=== PATIENT | male | born 1995 | race Caucasian/White ===

== ENCOUNTER 2017-07-16 07:11 | Inpatient (IN) | payer OTHER ==
[~2017-07-16] VITALS: Ht 167.6 cm; Wt 86.8 kg
--- NOTE | 2017-07-16 07:20 | NUR ---
BB MOTHER; ALOC. PER MOTHER PATIENT HAS HAD FLU LIKE SYMPTOMS X 3 DAYS AND BECAME DELIRIOUS LAST NIGHT. PATIENT CURRENTLY A/OX 2. BREATHING EVEN AND UNLABORED. PATIENT IS COOL TO TOUCH, DIAPHORETIC. VITALS REMAIN STABLE. NAD NOTED. SAFETY AND COMFORT MEASURES IN PLACE. MD AT BEDSIDE FOR EVAL.
[2017-07-16] MEDS ORDERED: IV NS 0.9% 1,000 ML BAG IV ONE ×2 (07:30→09:30)
--- NOTE | 2017-07-16 07:38 | NUR ---
PATIENT RETURNED FROM CT IN STABLE CONDITION.
--- NOTE | 2017-07-16 07:40 | NUR ---
NEW IV STARTED ON LFA, 20 G. BLOOD DRAWN AND SENT TO LAB.
[2017-07-16 07:50] LABS: BASOPHILS % (AUTO) 0.1 % (0.0-2.0); EOSINOPHILS # (AUTO) 0.2 /CMM (0.0-0.7); HEMATOCRIT 48 % (39-51); HEMOGLOBIN 16.6 g/dL (13.5-17.5); LYMPHOCYTES # (AUTO) 1.7 /CMM (0.8-4.8); LYMPHOCYTES % (AUTO) 10.1 % (20.0-44.0); MEAN CORPUSCULAR HEMOGLOBIN 30 PG (26.0-33.0); MEAN CORPUSCULAR HGB CONC 34 g/dl (31.0-36.0); MEAN CORPUSCULAR VOLUME 88 fL (80-96); MONOCYTES # (AUTO) 0.7 /CMM (0.1-1.30); MONOCYTES % (AUTO) 4.4 % (2.0-12.0); NEUTROPHILS # (AUTO) 14.2 /CMM (1.8-8.9); NEUTROPHILS % (AUTO) 84.4 % (43.0-81.0); PLATELET COUNT (AUTO) 359 /CMM (150-450); RDW COEFFICIENT OF VARIATION 12.9 (11.5-15.0); RED BLOOD CELL COUNT(AUTO) 5.51 MIL/uL (4.5-6.0); WHITE BLOOD COUNT (AUTO) 16.8 K/uL (4.3-11.0)
--- NOTE | 2017-07-16 08:00 | NUR ---
SECOND IV STARTED ON RFA, 20 G.
[2017-07-16 08:02] LABS: INR 0.97 (0.87-1.13)
[2017-07-16 08:04] LABS: CALCIUM, SERUM 9.8 mg/dL (8.5-10.1); CARBON DIOXIDE 23 mmol/L (21-32); CHLORIDE 99 mmol/L (98-107); CREATININE 1.2 mg/dL (0.6-1.3); GLUCOSE 141 mg/dL (74-106); SODIUM SERUM 136 mmol/L (136-145); UREA NITROGEN, BLOOD 14 mg/dL (7-18)
--- NOTE | 2017-07-16 08:10 | NUR ---
URINE OBTAINED AND SENT TO LAB.
[2017-07-16 08:11] LABS: ALANINE AMINOTRANSFERASE 101 U/L (12-78); ALBUMIN 4.5 g/dL (3.4-5.0); ALKALINE PHOSPHATASE 136 U/L (46-116); ASPARTATE AMINOTRANSFERASE 33 U/L (15-37); BILIRUBIN,DIRECT 0.1 mg/dL (0.0-0.2); BILIRUBIN,TOTAL 0.4 mg/dL (0.2-1.0); SALICYLATE 5.5 mg/dL (2.8-20.0); TOTAL PROTEIN, SERUM 8.8 g/dL (6.4-8.2); TROPONIN I < 0.017 ng/mL (0.00-0.056)
[2017-07-16 08:12] LABS: ACETAMINOPHEN < 2 ug/ml (10-30)
[2017-07-16 08:13] LABS: CREATINE KINASE, TOTAL 91 U/L (39-308)
--- NOTE | 2017-07-16 08:26 | NUR ---
PATIENT TAKEN TO CT VIA STRETCHER.
--- NOTE | 2017-07-16 08:39 | NUR ---
PATIENT RETURNED FROM CT IN STABLE CONDITION.
[2017-07-16] MEDS ORDERED: ONDANSETRON HCL/PF 4 MG/2 ML VIAL ONE ×2 (08:57→10:23)
[2017-07-16] MEDS ORDERED: ONDANSETRON HCL/PF 4 MG/2 ML VIAL IV ONE ×2 (09:00→10:30)
[2017-07-16 09:01] LABS: APPEARANCE,URINE SLIGHTLY HAZY (CLEAR); BLOOD, URINE TRACE Ery/uL (NEGATIVE); COLOR,URINE YELLOW (YELLOW); PH,URINE 6.5 (5.0-8.0); PROTEIN,URINE TRACE mg/dl (NEGATIVE); UGLUCOSE NEGATIVE (NEGATIVE)
[2017-07-16 09:02] LABS: BILIRUBIN,URINE NEGATIVE (NEGATIVE); KETONES,URINE 1+ (NEGATIVE); LEUKOCYTE ESTERASE ,URINE NEGATIVE (NEGATIVE); NITRITE, URINE NEGATIVE (NEGATIVE); UROBILINOGEN,URINE 0.2 EU/dL (0.2)
[2017-07-16 09:05] LABS: BACTERIA,URINE Rare /HPF (None Seen); SQUAMOUS EPITHELIAL CELL,UR Few /HPF (None Seen); WBC,URINE NONE SEEN /HPF (0-3)
[2017-07-16] MEDS ORDERED: LORAZEPAM INJ 2 MG/ML VIAL ONE ×2 (09:11→10:24)
[2017-07-16] MEDS ORDERED: LIDOCAINE /MPF 1% VIAL 5 ML VIAL ONE (09:13)
[2017-07-16] MEDS ORDERED: LORAZEPAM INJ 2 MG/ML VIAL IV ONE ×2 (09:30→10:30)
--- NOTE | 2017-07-16 09:31 | NUR ---
AT BEDSIDE FOR LUMBAR PUNCTURE. CONSENT SIGNED BY PATIENT, PLACED IN CHART.
--- NOTE | 2017-07-16 09:42 | NUR ---
CSF FLUID FROM LUMBAR PUNCTURE SENT TO LAB IMMEDIATELY BY ER STAFF.
[2017-07-16] MEDS ORDERED: VANCOMYCIN 1 GM in IV D5W 250 ML IV ONE (10:00)
[2017-07-16] MEDS ORDERED: PIPERACILLIN /TAZOBACTAM 3.375 G in IV D5W 50 ML IV ONE (10:00)
[2017-07-16] MEDS ORDERED: DIAZ2TAB PO (10:01)
[2017-07-16] MEDS ORDERED: ZOLP5TAB8 PO (10:01)
[2017-07-16] MEDS ORDERED: ALPR0.5T PO (10:01)
[2017-07-16] MEDS ORDERED: ONDA4TAB5 PO (10:01)
[2017-07-16] MEDS ORDERED: METHADONE PO (10:01)
[2017-07-16 10:25] LABS: CSF GLUCOSE 71 mg/dL (40-70); CSF PROTEIN 49.7 mg/dL (15-45)
[2017-07-16] MEDS ORDERED: diphenhydrAMINE HCL 50 MG/ML VIAL ONE (10:56)
--- NOTE | 2017-07-16 11:00 | NUR ---
PATIENTS UPPER LIP IS SWELLING UP. VANCOMYCIN STOPPED IMMEDIATELY. MD INFORMED. MD ORDERED MEDICATION FOR ALLERGY RELIEF.
[2017-07-16] MEDS ORDERED: methylPREDNISolone SOD SUCC 125 MG/2ML VIAL ONE (11:01)
[2017-07-16] MEDS ORDERED: FAMOTIDINE/PF INJ 20 MG/2 ML VIAL IV ONE ×2 (11:01→11:30)
--- NOTE | 2017-07-16 11:04 | NUR ---
PATIENT MEDICATED PER MD ORDERS, NO SOB, NO DISTRESS NOTED AT THIS TIME, WILL CONTINUE TO MONITOR.
--- NOTE | 2017-07-16 11:16 | NUR ---
PAGED [facility] -- ONCOLOGY REP SPECIALIST IS DR HOLLOWAY.
[2017-07-16] MEDS ORDERED: methylPREDNISolone SOD SUCC 125 MG/2ML VIAL IV ONE (11:30)
[2017-07-16] MEDS ORDERED: diphenhydrAMINE HCL 50 MG/ML VIAL IV ONE (11:30)
--- NOTE | 2017-07-16 11:41 | NUR ---
RPEORT GIVEN TO ZEINA GARCIA FOR REY
--- NOTE | 2017-07-16 12:00 | NUR ---
PATIENT TRANSPORTED TO [facility] VIA ACLS PROTOCOL. RNZEINA TO PROVIDE REY.
[2017-07-16 12:30] VITALS: BP 140/80
--- NOTE | 2017-07-16 13:33 | NUR ---
MS RN ADMITTING NOTES RECEIVED REPORT FROM NURSE AYALA OF E.R. PT ADMITTED TO UNIT VIA WHEELCHAIR AT 1235H AND ASSISTED IN TRANSFERRING TO BED AND ORIENTED TO UNIT. PT IS A/O X3-4. VERBALLY RESPONSIVE WITH NO C/O PAIN, N & V AT THIS TIME, SAME ABLE TO ANSWER ALL QUESTIONS ASKED COHERENTLY DURING ASSESSMENT. PT WITH DIAGNOSIS OF SEPSIS, COLITIS AND AMS. PT ON ROOM AIR, BREATHING EVEN AND UNLABORED, SP02 97%, NO SIGNS OF ACUTE RESPIRATORY DISTRESS NOTED. PT WITH IV ACCESSES ON RFA G#20 AND LFA G#20, BOTH INTACT AND PATENT. V/S CHECKED AND RECORDED. SKIN IS INTACT. SAFETY MEASURES INITIATED. BED PLACED ON LOW/LOCKED POSITION W/ SIDE-RAILS UP X2. CALL LIGHT AND BEDSIDE TABLE PLACED WITHIN EASY REACH OF PT. MADE AWARE OF PT'S ADMISSION TO UNIT. ORDERS TO FOLLWO-. WILL CONTINUE TO MONITOR PT ACCORDINGLY.
[2017-07-16] MEDS ORDERED: ACETAMINOPHEN 325 MG TABLET PO PRN (14:30)
[2017-07-16] MEDS ORDERED: ZOLPIDEM TARTRATE 5 MG TABLET PO PRN ×2 (14:30→17:30)
[2017-07-16] MEDS ORDERED: MAGNESIUM HYDROXIDE 30 ML UDC PO PRN (14:30)
[2017-07-16] MEDS ORDERED: HYDROCODONE/APAP 5/325MG 1 EACH TABLET PO PRN (14:30)
[2017-07-16] MEDS ORDERED: MAG HYDROX/AL HYDROX/SIMETH 30 ML UDC PO PRN (14:30)
[2017-07-16] MEDS ORDERED: Z GUARD REMEDY 2 OZ OINT TP PRN (14:30)
[2017-07-16] MEDS: ONDANSETRON HCL/PF 4 MG/2 ML VIAL IVP PRN (14:58)
[2017-07-16] MEDS: IV NS 0.9% 1,000 ML IV SCH (14:59)
[2017-07-16] MEDS ORDERED: HYDROMORPHONE INJ 0.5 MG/0.5 ML SYRINGE IV PRN (15:00)
[2017-07-16 16:00] VITALS: BP 110/82
[2017-07-16] MEDS: PIPERACILLIN /TAZOBACTAM 3.375 G in IV NS 0.9% 50 ML IV SCH ×2 (18:36→21:17)
--- NOTE | 2017-07-16 18:49 | NUR ---
MS RN CLOSING NOTES PT AWAKE AND RESTING AT MODERATE HIGH BACKREST IN BED WITH MOTHER AT BEDSIDE. . A/O X3-4, SAME VERBALLY RESPONSIVE. QUIET. CALMED AND COOPERATIVE SINCE ADMISSION. ALL NEEDS AND CARE ATTENDED WELL. IV ACCESS ON RIGHT FA G#20 AND LEFT FA G#20 BOTH INTACT AND PATENT, IVF OF NS @ 100ML /HR INFUSING WELL TO LFA IV LINE. ALL SAFETY PRECAUTIONS IN PLACE. BED IN LOW/LOCKED POSITION WITH SIDE-RAILS UP X2. CALL LIGHT WITHIN REACH. WILL ENDORSED TO DIRECTOR OF MAINTENANCE NURSE FOR REY.
--- NOTE | 2017-07-16 19:15 | NUR ---
MS RN NOTES RECEIVED PT SITTING UP IN BED, AWAKE, A/O X 3, VERBALLY RESPONSIVE. NO DISTRESS, NO SOB NOTED AT THIS TIME. RESPIRATION IS EVEN AND UNLABORED. ABLE TO VERBALIZE NEEDS. PT'S MOM AT BED SIDE. IV SITE ON RFA AND LFA INTACT AND PATENT, RICKY GOOD VENOUS RETURN. IVF CONNECTED TO LFA IV INFUSING WELL. NO C/O PAIN OR DISCOMFORT AT THIS TIME. ALL NEEDS ATTENDED AND MET. SAFETY PRECAUTIONS OBSERVED. CALL LIGHT WITHIN REACH. WILL CONTINUE TO MONITOR.
[2017-07-16 20:00] VITALS: BP 114/76
[2017-07-16 20:09] VITALS: BP 114/76
[2017-07-17] MEDS: IV NS 0.9% 1,000 ML IV SCH ×3 (01:43→22:11)
[2017-07-17] MEDS: ALPRAZOLAM 0.5 MG TABLET PO PRN (03:40)
[2017-07-17] MEDS: ONDANSETRON HCL/PF 4 MG/2 ML VIAL IVP PRN ×4 (03:53→22:06)
[2017-07-17] MEDS: PIPERACILLIN /TAZOBACTAM 3.375 G in IV NS 0.9% 50 ML IV SCH ×4 (03:54→22:04)
[2017-07-17] MEDS: DIAZEPAM 2 MG TABLET PO PRN (05:05)
--- NOTE | 2017-07-17 06:40 | NUR ---
MS RN NOTES PT IN BED, RESTING AT THIS TIME, AROUSES EASILY.NO EPISODE OF ANXIETY AT THIS TIME. A/O X 3, VERBALLY RESPONSIVE. NO DISTRESS, NO SOB NOTED AT THIS TIME. RESPIRATION IS EVEN AND UNLABORED. ABLE TO VERBALIZE NEEDS. IV SITE ON RFA AND LFA INTACT AND PATENT, WITH GOOD VENOUS RETURN. IVF CONNECTED TO LFA IV INFUSING WELL. NO C/O PAIN OR DISCOMFORT AT THIS TIME. VOIDING FREELY WITH CLEAR YELLOW URINE. NO DYSURIA OR HEMATURIA NOTED. ALL NEEDS ATTENDED AND MET. ALL DUE MEDS GIVEN. SAFETY PRECAUTIONS OBSERVED. CALL LIGHT WITHIN REACH. WILL ENDORSE TO NEXT SHIFT FOR REY
[2017-07-17 07:06] LABS: BASOPHILS % (AUTO) 0.1 % (0.0-2.0); EOSINOPHILS % (AUTO) 0.2 % (0.0-6.0); HEMATOCRIT 42 % (39-51); HEMOGLOBIN 14.5 g/dL (13.5-17.5); LYMPHOCYTES # (AUTO) 2.2 /CMM (0.8-4.8); MEAN CORPUSCULAR HEMOGLOBIN 30 PG (26.0-33.0); MEAN CORPUSCULAR HGB CONC 34 g/dl (31.0-36.0); MEAN CORPUSCULAR VOLUME 89 fL (80-96); MONOCYTES # (AUTO) 1.1 /CMM (0.1-1.30); MONOCYTES % (AUTO) 7.4 % (2.0-12.0); NEUTROPHILS # (AUTO) 11.3 /CMM (1.8-8.9); NEUTROPHILS % (AUTO) 77.3 % (43.0-81.0); PLATELET COUNT (AUTO) 286 /CMM (150-450); RED BLOOD CELL COUNT(AUTO) 4.78 MIL/uL (4.5-6.0); WHITE BLOOD COUNT (AUTO) 14.6 K/uL (4.3-11.0)
--- NOTE | 2017-07-17 07:16 | NUR ---
RN OPENING NOTES RECEIVED PATIENT IN BED RESTING, A/OX3, CALM. NO ACUTE DISTRESS, NO SOB NOTED. NO S/S OF PAIN OR DISCOMFORT AT THIS TIME. IV SITE INTACT AND PATENT. KEPT PATIENT SAFE AND COMFORTABLE IN BED. SIDRAILS UPX2, SIDERAILES PADDED NOTED FOR SEIZURE PRECAUTIONS. BED IN LOCKED/LOW POSITION, CALL LIGHT IN REACH. WILL CONTINUE TO MONITOR ACCORDINGLY
[2017-07-17 07:24] LABS: CALCIUM, SERUM 8.8 mg/dL (8.5-10.1); CREATININE 0.9 mg/dL (0.6-1.3); MAGNESIUM 1.8 mg/dL (1.8-2.4); PHOSPHORUS 3.2 mg/dL (2.5-4.9); POTASSIUM 3.8 mmol/L (3.5-5.1)
[2017-07-17 08:00] VITALS: BP 120/68
[2017-07-17] MEDS ORDERED: FEE PK DOSING 1 MIN EA MC ONE (10:38)
[2017-07-17] MEDS: LORAZEPAM 1 MG TABLET PO PRN (10:39)
[2017-07-17] MEDS ORDERED: VANCOMYCIN 1.25 GM in IV NS 0.9% 500 ML IV SCH (11:00)
--- NOTE | 2017-07-17 12:00 | NUR ---
RN NOTES FOLLOWED UP WITH [facility] REGARDING PATIENT'S DOSE, PATIENT'S MEDICATION RECORD WAS RECEIVED VIA FAX AND PLACED IT ON PATIENT'S CHART.
[2017-07-17] MEDS: METHADONE HCL 10 MG TABLET PO SCH (15:34)
[2017-07-17 16:00] VITALS: BP 119/83
--- NOTE | 2017-07-17 19:30 | NUR ---
MS RN NOTES PATIENT RECEIVED RESTING INSIDE ROOM, AWAKE, ALERT AND ORIENTED, ABLE TO MAKE NEEDS KNOWN AND FOLLOW SIMPLE INSTRUCTIONS. PATIENT BREATHING EVEN AND UNLABORED. NO SOB OR ACUTE DSITRESS NOTED AT THIS TIME. PATIENT AFEBRILE, SKIN DRY AND WARM TO TOUCH. NO CHANGES IN LOC NOTED AT THIS TIME. PATIENT CALM AND RELAXED. WILL CONTINUE TO MONITOR. PROVIDED WITH CALM, SAFE, HAZARD-FREE ENVIRONMENT. BILATERAL UPPER SIDE RAILS UP AND LOCKED. BED LOCKED AND IN LOW POSITION. CALL LIGHT PLACED WITHIN EASY REACH.
--- NOTE | 2017-07-17 19:49 | NUR ---
RN CLOSING NOTES PATIENT IN BED RESTING. NO ACUTE DISTRESS, NO SOB NOTED. DENIES PAIN OR DISCOMFORT AT THIS TIME. ALL NEEDS ATTENDED AND PROVIDED. KEPT PATIENT SAFE AND COMFORTABLE. BED IN LOW/LOCKED POSITION, SIDERAILS UPX2. CALL LIGHT IN REACH. ENDORSED TO NIGHT RN FOR REY.
[2017-07-17 20:00] VITALS: BP 97/60
--- NOTE | 2017-07-17 22:07 | NUR ---
MS RN NOTES PATIENT WITH COMPLAIN OF NAUSEA. REQUESTED FOR ZOFRAN PRN. MEDICATION GIVEN ORDERED PRN. WILL CONTINUE TO MONITOR
[2017-07-18] MEDS: PIPERACILLIN /TAZOBACTAM 3.375 G in IV NS 0.9% 50 ML IV SCH ×2 (04:12→10:43)
[2017-07-18] MEDS: ONDANSETRON HCL/PF 4 MG/2 ML VIAL IVP PRN ×2 (04:23→10:37)
[2017-07-18] MEDS: LORAZEPAM 1 MG TABLET PO PRN ×2 (04:23→10:37)
--- NOTE | 2017-07-18 04:24 | NUR ---
MS RN NOTES PATIENT AWAKE, ALERT AND ORIENTED. WITH COMPLAIN OF NAUSEA, NO EPISODE OF VOMITING AT THIS TIME. REQUESTED FOR ZOFRAN. GIVEN MEDICATION ORDERED PRN. WILL CONTINUE TO MONITOR
[2017-07-18] MEDS: IV NS 0.9% 1,000 ML IV SCH (06:21)
--- NOTE | 2017-07-18 07:09 | NUR ---
MS RN NOTES PATIENT RESTING INSIDE ROOM. AWAKE, ALERT AND ORIENTED, ABLE TO MAKE NEEDS KNOWN AND FOLLOW SIMPLE INSTRUCTIONS. PATIENT BREATHING EVEN AND UNLABORED. NO SOB OR ACUTE DISTRESS NOTED. PATIENT REMAINS AFEBRILE, SKIN DRY AND WARM TO TOIDJ. NO CHANGES IN LOC NOTED AT THIS TIME. PATIENT REMAINS CALM AND RELAXED. IV SITE ON LEFT FOREARM INTACT AND PATENT, NO BLEEDING OR SWELLING NOTED. WILL CONTINUE TO MONITOR. ALL NURSING NEEDS ATTENDED AND MET. ALL DUE MEDICATIONS GIVEN AND TOLERATED WELL. PROVIDED WITH CALM, HAZARD-FREE ENVIRONMENT. CALL LIGHT WITHIN EASY REACH, WILL ENDORSE TO INCOMING SHIFT
--- NOTE | 2017-07-18 07:30 | NUR ---
RN OPEN NOTES RECEIVED REPORT FROM TELEGRAPHIC TYPEWRITER REPAIRER NURSE. PATIENT IS IN BED. ALERT AND ORIENTED TO NAME, SELF, TIME AND PLACE. BED IN LOW POSITION, LOCKED AND TWO SIDE RAILS ARE UP. CALL LIGHT WITH REACH FOR SAFETY. WILL CONTINUE TO ASSESS AND MONITOR PATIENT
[2017-07-18 08:00] VITALS: BP 116/57
[2017-07-18 08:13] LABS: BASOPHILS % (AUTO) 0.4 % (0.0-2.0); EOSINOPHILS # (AUTO) 0.2 /CMM (0.0-0.7); EOSINOPHILS % (AUTO) 2.3 % (0.0-6.0); HEMATOCRIT 46 % (39-51); HEMOGLOBIN 15.8 g/dL (13.5-17.5); LYMPHOCYTES # (AUTO) 3.2 /CMM (0.8-4.8); LYMPHOCYTES % (AUTO) 31.8 % (20.0-44.0); MEAN CORPUSCULAR HEMOGLOBIN 30 PG (26.0-33.0); MEAN CORPUSCULAR HGB CONC 34 g/dl (31.0-36.0); MEAN CORPUSCULAR VOLUME 88 fL (80-96); MONOCYTES # (AUTO) 0.7 /CMM (0.1-1.30); MONOCYTES % (AUTO) 7.3 % (2.0-12.0); NEUTROPHILS # (AUTO) 5.9 /CMM (1.8-8.9); NEUTROPHILS % (AUTO) 58.2 % (43.0-81.0); PLATELET COUNT (AUTO) 305 /CMM (150-450); RDW COEFFICIENT OF VARIATION 12.6 (11.5-15.0); RED BLOOD CELL COUNT(AUTO) 5.23 MIL/uL (4.5-6.0); WHITE BLOOD COUNT (AUTO) 10.1 K/uL (4.3-11.0)
[2017-07-18] MEDS: METHADONE HCL 10 MG TABLET PO SCH (08:22)
[2017-07-18] MEDS: DIAZEPAM 2 MG TABLET PO PRN (08:39)
[2017-07-18 09:14] LABS: CALCIUM, SERUM 9.2 mg/dL (8.5-10.1); CREATININE 1.2 mg/dL (0.6-1.3)
[2017-07-18] MEDS ORDERED: LEVO500T75 PO (11:54)
[2017-07-18] MEDS ORDERED: ONDA4TAB8 SL (11:54)
[2017-07-18] MEDS: ALPRAZOLAM 0.5 MG TABLET PO PRN (14:42)
--- NOTE | 2017-07-18 14:59 | NUR ---
Social service consult requested by Dr. Feliciano for prescription refills and grief resources since pt. lost his father a few weeks ago. ROBERT met with pt. bedside. Pt's mother Jahaira was bedside. Pt. is alert and oriented x 4. Pt. is cooperative and pleasant with SW during the assessment. Pt. lives in [place] and came to [place] to help his mom who is caring for his 92 year old grandmother. Pt. recently lost his father and became teary eyed talking about it. ROBERT provided emotional support and gave pt. referral to [facility] located at [address], [address]. ROBERT encouraged pt. to contact them to process his grief. Pt. denies suicidal/homicidal ideations and visual/auditory hallucinations at this time. Pt. states he does not have a primary doctor and needs referrals to health clinics in [facility]. ROBERT gave pt. referrals to list of [facility] health clinics including [facility] in [place] [address] [place] [id number]. . ROBERT also gave pt. [facility] RX discount medication cards. No other social service needs are requested at this time. SW is available, if needed.
--- NOTE | 2017-07-18 15:30 | NUR ---
NETWORK CONTROL SUPERVISOR NOTES DISCHARGE ORDER RECEIVED AND CARRIED OUT. PATIENT IS LEAVING IN A STABLE CONDITION. ALL DISCHARGE INFORMATION EXPLAINED TO PATIENT AND HIS MOTHER. BOTH VERBALIZE UNDERSTANDING. ALL PERSONAL BELONGING WITH PATIENT AT TIME OF DISCHARGE. BOTH FORMS SIGNED BY PATIENT AND PLACED INT HE CHART. NEW PRESCRIPTION GAVE TO PATIENT AND MEDS EDUCATION WAS GIVEN. CLAY MIXER EVALUATION PRIOR TO DISCHARGE COMPLETED. IV SITE REMOVED. ID BAND REMOVED. PATIENT PICKED UP BY HIS MOTHER VIA A PRIVATE CAR. PER MOTHER, PATIENT RESIDES WITH HER
[2017-07-21 09:17] LABS: *WEST NILE VIRUS IgG, CSF Negative (Negative)
[2017-07-21 11:11] LABS: *WEST NILE VIRUS IgM, CSF Negative (Negative)
== END 2017-07-18 15:50 | disposition home or self-care (01) | DRG 720 ==
LOC: ER 07:13 → MED 12:14
PROVIDERS: ADMIT Internal Medicine; ATTEND Internal Medicine
DX: A41.89 Other specified sepsis (principal); G92 Toxic encephalopathy; A09 Infectious gastroenteritis and colitis, unspecified; F32.9 Major depressive disorder, single episode, unspecified; F41.9 Anxiety disorder, unspecified; G89.4 Chronic pain syndrome; F17.200 Nicotine dependence, unspecified, uncomplicated; E86.0 Dehydration
CPT/HCPCS: 36415; 70450-TC; 71045-TC; 80048-TC; 80076-TC; 80305; 81000-TC; 82550-TC; 82962-TC; 83605-TC; 83735-TC; 84100-TC; 84484-TC; 85025-TC; 85730-TC; 86788; 86789; 87040-TC; 87070-TC; 87081-TC; 87086-TC; 87186-TC; 87400; 89051-TC; 95819-TC; A4216; A4606; A6402; G0480; J1200; J2060; J2405; J2543; J2930; J3370; J3490; J7030; J7040; J7060; Z7610